=== PATIENT | male | born 1990 | race Caucasian/White ===

== ENCOUNTER 2025-01-14 10:37 | Day surgery (SDC) | payer BC ==
[~2025-01-14 10:37] MED LIST: Propofol 200 MG/20 ML SDV ONE; fentaNYL 100 MCG/2 ML SDV ONE
[2025-01-14] MEDS: Lactated Ringers 1,000 ML IV SCH (10:49)
== END 2025-01-14 13:51 | disposition home or self-care (01) ==
LOC: VM.SDS 10:37
PROVIDERS: ATTEND Family Medicine
DX: K92.1 Melena (principal); R19.4 Change in bowel habit; G47.00 Insomnia, unspecified; F17.290 Nicotine dependence, other tobacco product, uncomplicated; Z80.0 Family history of malignant neoplasm of digestive organs; Z79.899 Other long term (current) drug therapy
CPT/HCPCS: 00811; 45380; J2704; J3010; J7120